=== PATIENT | male | born 1995 | race Caucasian/White ===

== ENCOUNTER 2025-05-29 15:22 | Emergency (ER) | payer OTHER ==
[~2025-05-29] VITALS: Ht 182.9 cm; Wt 111.1 kg
[2025-05-29 16:18] VITALS: BP 175/102
== END 2025-05-29 16:18 | disposition home or self-care (01) ==
LOC: ED 15:22
DX: S01.01XA Laceration without foreign body of scalp, initial encounter (principal); W22.8XXA Striking against or struck by other objects, initial encounter
CPT/HCPCS: 99283